=== PATIENT | male | born 1955 | race Caucasian/White ===

== ENCOUNTER 2020-06-08 12:40 | Inpatient (IN) | payer MEDICARE ==
[2020-06-08] MEDS ORDERED: AMPICILLIN-SULBACTAM 3 GM in SODIUM CHLORIDE 0.9% 100 ML IVPB STA (13:13)
[2020-06-08] MEDS ORDERED: SODIUM CHLORIDE 0.9% 500 ML 500 ML IV STA (13:13)
[2020-06-08] MEDS ORDERED: metroNIDAZOLE-NS PMX 500 MG in SALINE 1 100ML.BAG IVPB STA (13:14)
--- NOTE | 2020-06-08 13:25 | ED ---
General Adult HPI - General Chief complaint: Animal Bite Stated complaint: Cat Bite Time Seen by Provider: 06/08/20 12:58 Source: patient, RN notes reviewed, old records reviewed Mode of arrival: ambulatory Limitations: no limitations - History of Present Illness Initial comments: 64-year-old male presenting for evaluation of Bite to the left wrist and hand. This occurred on Saturday which was 5 days prior to arrival. On Saturday he was seen at an outside clinic, and started on Augmentin as well as given a tetanus update. He has been on Augmentin for the past 4 days and has noted an increase in swelling and pain in his wrist and back of his hand. He denies fever. 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 He is not currently on immunotherapy or any daily medication. - Related Data Allergies Allergy/AdvReac Type Severity Reaction Status Date / Time No Known Allergies Allergy Verified 06/08/20 12:58 Review of Systems ROS Statement: Those systems with pertinent positive or pertinent negative responses have been documented in the HPI. ROS Other: All systems not noted in ROS Statement are negative. Past Medical History Past Medical History: Cancer Additional Past Medical History / Comment(s): AML 2002, mouth Cancer History of Any Multi-Drug Resistant Organisms: None Reported Additional Past Surgical History / Comment(s): Bone marrow Transplant for AML Past Psychological History: No Psychological Hx Reported Smoking Status: Never smoker Past Alcohol Use History: None Reported Past Drug Use History: Marijuana General Exam Limitations: no limitations General appearance: alert, in no apparent distress Head exam: Present: atraumatic, normocephalic Eye exam: Present: normal appearance, PERRL ENT exam: Present: normal exam Neck exam: Present: normal inspection. Absent: tenderness, meningismus Respiratory exam: Present: normal lung sounds bilaterally. Absent: respiratory distress, wheezes Cardiovascular Exam: Present: normal rhythm, tachycardia GI/Abdominal exam: Present: soft. Absent: distended, tenderness, guarding Extremities exam: Present: other (Left hand and wrist: There are 2 linear superficial lacerations on the dorsal surface of the wrist, there is multiple puncture wounds on the dorsal surface of the hand as well as soft tissue swelling. There is no induration, there is no fluctuance or drainable abscess at this time. ) Course Vital Signs 06/08/20 12:52 Temperature 97.7 F Pulse Rate 102 H Respiratory 19 Rate Blood Pressure 118/80 O2 Sat by Pulse 97 Oximetry Medical Decision Making - Medical Decision Making 64-year-old male with Bite, 4 days on Augmentin with worsening symptoms. He has failed outpatient treatment. He will be admitted for IV antibiotics. Patient started on ceftriaxone and metronidazole. Normal white blood cell count,, normal lactic, blood cultures pending, elevated CRP at 53. Patient will be admitted with infectious disease on consult. - Lab Data Result diagrams: 06/08/20 13:18 06/08/20 13:18 Lab Results 06/08/20 06/08/20 06/08/20 Range/Units 13:18 13:18 13:18 WBC 8.0 (3.8-10.6) k/uL RBC 4.40 (4.30-5.90) m/uL Hgb 15.0 (13.0-17.5) gm/dL Hct 44.9 (39.0-53.0) % MCV 102.2 H (80.0-100.0) fL MCH 34.1 (25.0-35.0) pg MCHC 33.4 (31.0-37.0) g/dL RDW 12.2 (11.5-15.5) % Plt Count 254 (150-450) k/uL Neutrophils % 61 % Lymphocytes % 26 % Monocytes % 8 % Eosinophils % 3 % Basophils % 1 % Neutrophils # 4.9 (1.3-7.7) k/uL Lymphocytes # 2.1 (1.0-4.8) k/uL Monocytes # 0.6 (0-1.0) k/uL Eosinophils # 0.3 (0-0.7) k/uL Basophils # 0.0 (0-0.2) k/uL Sodium 139 (137-145) mmol/L Potassium 5.0 (3.5-5.1) mmol/L Chloride 106 (98-107) mmol/L Carbon Dioxide 24 (22-30) mmol/L Anion Gap 9 mmol/L BUN 20 (9-20) mg/dL Creatinine 0.94 (0.66-1.25) mg/dL Est GFR (CKD-EPI)AfAm >90 (>60 ml/min/1.73 sqM) Est GFR (CKD-EPI)NonAf 85 (>60 ml/min/1.73 sqM) Glucose 117 H (74-99) mg/dL Plasma Lactic Acid Van 1.4 (0.7-2.0) mmol/L Calcium 9.4 (8.4-10.2) mg/dL Total Bilirubin 0.9 (0.2-1.3) mg/dL AST 140 H (17-59) U/L ALT 124 H (4-49) U/L Alkaline Phosphatase 123 (38-126) U/L C-Reactive Protein 53.0 H (<10.0) mg/L Total Protein 7.2 (6.3-8.2) g/dL Albumin 4.2 (3.5-5.0) g/dL Disposition Clinical Impression: Cat bite, Failure of outpatient treatment Disposition: ADMITTED IP TO THIS [facility] Condition: Stable Instructions (If sedation given, give patient instructions): Animal Bite (ED) Is patient prescribed a controlled substance at d/c from ED?: No Referrals: Enrico Anaya DO [Primary Care Provider] - 1-2 days Decision to Admit Reason: Admit from EC Decision Date: 06/08/20 Decision Time: 13:25
[2020-06-08 13:46] LABS: Basophils % (A) 1 %; Eosinophils # (A) 0.3 k/uL (0-0.7); Eosinophils % (A) 3 %; HCT 44.9 % (39.0-53.0); Lymphocytes # (A) 2.1 k/uL (1.0-4.8); Lymphocytes % (A) 26 %; MCH 34.1 pg (25.0-35.0); MCHC 33.4 g/dL (31.0-37.0); MCV 102.2 fL (80.0-100.0); Mean Platelet Volume 7.7; Monocytes # (A) 0.6 k/uL (0-1.0); Monocytes % (A) 8 %; Neutrophils # (A) 4.9 k/uL (1.3-7.7); Neutrophils % (A) 61 %; Platelet Count 254 k/uL (150-450); RDW 12.2 % (11.5-15.5)
[2020-06-08 13:48] LABS: ALT 124 U/L (4-49); AST 140 U/L (17-59); African American GFR (CKD) >90 (>60 ml/min/1.73 sqM); Albumin 4.2 g/dL (3.5-5.0); Alkaline Phosphatase 123 U/L (38-126); Anion Gap 9 mmol/L; Blood Urea Nitrogen 20 mg/dL (9-20); Calcium 9.4 mg/dL (8.4-10.2); Carbon Dioxide 24 mmol/L (22-30); Chloride 106 mmol/L (98-107); Glucose 117 mg/dL (74-99); Non-African American GFR(CKD) 85 (>60 ml/min/1.73 sqM); Sodium 139 mmol/L (137-145); Total Bilirubin 0.9 mg/dL (0.2-1.3); Total Protein 7.2 g/dL (6.3-8.2)
--- NOTE | 2020-06-08 13:49 | XR ---
EXAMINATION TYPE: XR hand complete LT DATE OF EXAM: 06/08/2020 CLINICAL HISTORY: Cat bite of wrist. Swelling. TECHNIQUE: Frontal, lateral and oblique images of the left hand are obtained. COMPARISON: None. FINDINGS: There is no acute fracture/dislocation evident in the left hand. Decreased osseous mineral ization. There are degenerative changes of the radial carpal joints and the first carpometacarpal michael nts. The overlying soft tissue appears unremarkable. No radiopaque foreign body. IMPRESSION: No acute fracture or dislocation in the left hand.
[2020-06-08] MEDS ORDERED: NALOXONE 0.4 MG/ML 1 ML VIAL IV PRN (13:56)
[2020-06-08] MEDS ORDERED: ACETAMINOPHEN TAB 325 MG TAB PO PRN (13:56)
[2020-06-08] MEDS ORDERED: SODIUM CHLORIDE 0.9% 1,000 ML IV SCH ×2 (14:00→23:00)
[2020-06-08] MEDS: MORPHINE SULFATE 4 MG/ML SYRINGE IV PRN ×2 (15:02→19:52)
[2020-06-08] MEDS: AMPICILLIN-SULBACTAM 3 GM in SODIUM CHLORIDE 0.9% 100 ML IVPB SCH ×2 (17:31→23:54)
[2020-06-08] MEDS ORDERED: ALPRAZolam 0.25 MG TAB PO PRN (22:43)
[2020-06-08] MEDS: SODIUM CHLORIDE 0.9% 1,000 ML IV SCH (23:54)
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
[2020-06-09] MEDS: MORPHINE SULFATE 4 MG/ML SYRINGE IV PRN ×3 (02:09→17:51)
[2020-06-09] MEDS: AMPICILLIN-SULBACTAM 3 GM in SODIUM CHLORIDE 0.9% 100 ML IVPB SCH ×4 (05:59→23:57)
[2020-06-09 06:35] LABS: Basophils % (A) 1 %; Eosinophils # (A) 0.5 k/uL (0-0.7); Eosinophils % (A) 6 %; HGB 12.3 gm/dL (13.0-17.5); Lymphocytes # (A) 3.4 k/uL (1.0-4.8); Lymphocytes % (A) 39 %; MCH 33.3 pg (25.0-35.0); MCHC 31.5 g/dL (31.0-37.0); MCV 105.6 fL (80.0-100.0); Macrocytosis Slight; Mean Platelet Volume 7.4; Monocytes # (A) 0.6 k/uL (0-1.0); Monocytes % (A) 6 %; Neutrophils # (A) 3.9 k/uL (1.3-7.7); Neutrophils % (A) 46 %; Platelet Count 283 k/uL (150-450); RDW 12.8 % (11.5-15.5); WBC 8.6 k/uL (3.8-10.6)
[2020-06-09] MEDS: HEPARIN SODIUM,PORCINE 5,000 UNIT/ML 1 ML VIAL SQ SCH ×2 (07:24→21:01)
[2020-06-09] MEDS: PANTOPRAZOLE 40 MG TABLET PO SCH (07:24)
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
[2020-06-09 09:29] LABS: African American GFR (CKD) 103.5 (60.0-200.0); Anion Gap 8.9 mmol/L (4.00-12.00); BUN/Creat Ratio 18.89 Ratio (12.00-20.00); Carbon Dioxide 25.1 mmol/L (21.6-31.8); Non-African American GFR(CKD) 89.3 (60.0-200.0); Potassium 4.1 mmol/L (3.5-5.5)
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
[2020-06-09] MEDS: HYDROcodone/APAP 5-325MG 1 EACH TAB PO PRN ×2 (14:18→21:01)
--- NOTE | 2020-06-09 15:09 | US ---
EXAMINATION TYPE: US abdomen limited DATE OF EXAM: 06/09/2020 COMPARISON: NONE CLINICAL HISTORY: Increased LFT. EXAM MEASUREMENTS: Liver Length: 14.7 cm Gallbladder Wall: 0.2 cm CBD: 0.6 cm Right Kidney: 9.0 x 4.7 x 4.7 cm Pancreas: Obscured by bowel gas Liver: calcification noted right lobe, otherwise wnl Gallbladder: small amount of possible dependant debris Evidence for sonographic Carrasquillo's sign: CBD: wnl Right Kidney: superior pole obscured by overlying bowel gas, portions visualized wnl IMPRESSION: 1. Some minimal debris may be within the gallbladder. No shadowing renal stones are evident. No addit ional findings for acute cholecystitis are identified.
[2020-06-09 19:41] LABS: Hepatitis A Antibody IgM Non-Reactive (Non-Reactive); Hepatitis B Core IgM Non-Reactive (Non-Reactive); Hepatitis B Surface Antigen Non-Reactive (Non-Reactive); Hepatitis C IgG Antibody Non-Reactive (Non-Reactive)
[2020-06-09] MEDS ORDERED: NAPROXEN 250 MG TAB PO STA (20:33)
--- NOTE | 2020-06-09 20:33 | P.PN ---
Progress Note - Text Progress Note Date: 06/09/20 Presenting complaint: Cat bite History of presenting complaint: This is a pleasant 64-year-old patient with a cat bite to left hand. Domestic cat. All immunizations. Started with IV Unasyn. Today-laying in bed. Some decrease in swelling and pain of the left hand. Elevated. Able to move the fingers some. Review of systems: Was done for constitutional, cardiovascular, GI, pulmonary. relevant finding as above Active Medications Acetaminophen (Acetaminophen Tab 325 Mg Tab) 650 mg PO Q6HR PRN PRN Reason: Mild Pain or Fever > 100.5 Hydrocodone Bitart/Acetaminophen (Hydrocodone/Apap 5-325mg 1 Each Tab) 1 each PO Q6HR PRN PRN Reason: Pain Last Admin: 06/09/20 14:18 Dose: 1 each Documented by: Alprazolam (Alprazolam 0.25 Mg Tab) 0.25 mg PO TID PRN PRN Reason: Anxiety Heparin Sodium (Porcine) (Heparin Sodium,Porcine 5,000 Unit/Ml 1 Ml Vial) 5,000 unit SQ Q12HR [facility] Last Admin: 06/09/20 07:24 Dose: 5,000 unit Documented by: Ampicillin Sodium/Sulbactam (Sodium 3 gm/ Sodium Chloride) 100 mls @ 200 mls/hr IVPB Q6HR [facility] Last Admin: 06/09/20 17:53 Dose: 200 mls/hr Documented by: Sodium Chloride (Saline 0.9%) 1,000 mls @ 50 mls/hr IV .Q20H [facility] Last Admin: 06/08/20 23:54 Dose: 50 mls/hr Documented by: Morphine Sulfate (Morphine Sulfate 4 Mg/Ml Syringe) 4 mg IV Q4HR PRN PRN Reason: Severe Pain Last Admin: 06/09/20 17:51 Dose: 4 mg Documented by: Naloxone HCl (Naloxone 0.4 Mg/Ml 1 Ml Vial) 0.2 mg IV Q2M PRN PRN Reason: Opioid Reversal Pantoprazole Sodium (Pantoprazole 40 Mg Tablet) 40 mg PO AC-BRKFST [facility] Last Admin: 06/09/20 07:24 Dose: 40 mg Documented by: On examination: VITAL SIGNS: [98, 78, 20, 109/64, 96% room air] GENERAL APPEARANCE: laying in bed, comfortable HEENT: Normal external appearance of nose and ear. Oral cavity normal EYES: Pupils equal. Conjunctiva normal. NECK: JVD not raised. Mass not palpable. RESPIRATORY: Respiratory effort normal. Lungs decreased breath sounds CARDIOVASCULAR: First and second sounds normal. No edema. ABDOMEN: Soft. Liver and spleen not palpable. No tenderness. No mass palpable. PSYCHIATRY: Alert and oriented x3. Mood and affect normal. EXTREMITY: Left hand including the dorsum with some cat bite noguera tenderness present. Limited range of motion of the fingers INVESTIGATIONS, reviewed in the clinical context: white count 8.6 hemoglobin 12.3 platelets 283 potassium 4.1 creatinine 0.9 AST 140 ALT 124 assessment: -Acute cat bite causing cellulitis of the left hand-slowly improving -Hepatitis, type unknown - Plan: Acute hepatitis panels be sent off. Came back to be negative. We will do a liver ultrasound. Also check for hepatitis B surface antibody and hepatitis C IgGantibody.told the patient to use a rubber ball for regular exercise of his fingers to remove any stiffness.Will add naproxen as an anti-inflammatory.
[2020-06-09] MEDS: SODIUM CHLORIDE 0.9% 1,000 ML IV SCH (21:02)
--- NOTE | 2020-06-09 23:40 | PN ---
PROGRESS NOTE DATE OF SERVICE: 06/09/2020 REASON FOR FOLLOWUP: Left forearm cat bite cellulitis. INTERVAL HISTORY: The patient is currently afebrile. He is breathing comfortably. Overall pain and discomfort to the left forearm has slightly decreased. Did mention to have some drainage noticed this morning which has been cultured. No chest pain or cough. No abdominal pain or diarrhea. PHYSICAL EXAMINATION: Blood pressure 110/66, pulse of 77, temperature 97.9. He is 95% on room air. General description is an elderly male up in the room in no distress. RESPIRATORY SYSTEM: Unlabored breathing, clear to auscultation anteriorly. HEART: S1, S2. Regular rate and rhythm. ABDOMEN: Soft, no tenderness. Left wrist and forearm area swelling and redness minimally decreased. LABS: Wound cultures currently pending. DIAGNOSTIC IMPRESSION AND PLAN: Patient with left wrist and forearm cat bite cellulitis failing outpatient therapy. Patient currently on Unasyn to continue while waiting for the culture to finalize and continue supportive care. MMODL / IJN: [id number] /
[2020-06-10] MEDS: HYDROcodone/APAP 5-325MG 1 EACH TAB PO PRN ×2 (05:44→20:08)
[2020-06-10] MEDS: AMPICILLIN-SULBACTAM 3 GM in SODIUM CHLORIDE 0.9% 100 ML IVPB SCH ×4 (05:44→23:21)
[2020-06-10 06:35] LABS: Basophils % (A) 1 %; Eosinophils # (A) 0.4 k/uL (0-0.7); Eosinophils % (A) 7 %; HCT 38.5 % (39.0-53.0); HGB 12.1 gm/dL (13.0-17.5); Lymphocytes # (A) 2.6 k/uL (1.0-4.8); Lymphocytes % (A) 38 %; MCH 32.9 pg (25.0-35.0); MCHC 31.4 g/dL (31.0-37.0); MCV 104.7 fL (80.0-100.0); Macrocytosis Slight; Mean Platelet Volume 7.4; Monocytes # (A) 0.5 k/uL (0-1.0); Monocytes % (A) 7 %; Neutrophils % (A) 44 %; Platelet Count 303 k/uL (150-450); RBC 3.68 m/uL (4.30-5.90); RDW 12.6 % (11.5-15.5); WBC 6.7 k/uL (3.8-10.6)
[2020-06-10 09:55] LABS: African American GFR (CKD) 108.6 (60.0-200.0); Anion Gap 6.1 mmol/L (4.00-12.00); Calcium 8.6 mg/dL (8.7-10.3); Carbon Dioxide 24.9 mmol/L (21.6-31.8); Non-African American GFR(CKD) 93.7 (60.0-200.0); Potassium 4.2 mmol/L (3.5-5.5)
[2020-06-10 10:48] LABS: Hepatitis B Surface AB- Quant 20.5 mIU/mL; Hepatitis B Surface Antibody Reactive (Non-Reactive); Hepatitis C IgG Antibody Non-Reactive (Non-Reactive)
--- NOTE | 2020-06-10 10:53 | P.PN ---
Progress Note - Text Progress Note Date: 06/10/20 Orthopedic Surgery Risk Review Peña Reyes is a 64-year-old male presenting for evaluation of sudden onset left hand pain, after a cat bite. It was my pleasure to have seen and examined Peña Reyes. In our visit today we have had a chance to go over subjective complaints, physical examination findings and treatments including the natural course histo ry without intervention and various interventional options. His imaging demonstrates subcutaneous swelling around the left hand and wrist with no fractures or dislocations. On physical exam, Peña Reyes demonstrates pain with motion of the left wrist and hand with fluctuance palpable over the third and fourth MCP joints dorsally with erythema and draining wound, which is NV intact at this time. I have explained to the patient that this fracture needs stabilization. Based on the patients imaging, physical exam, and the rapid progression and disabling nature of her symptoms, at this time I recommend surgery in the form or a: Irrigation and debridement of left hand I discussed the risk and benefits of this procedure at length with Peña Reyes. Questions were invited and answered, and the patient wishes to proceed as outlined below. Currently, I am recommendin. Irrigation and debridement of skin and soft tissue of left hand dorsally secondary to cat bite 2. Review of surgical risks and benefits as well as an educational packet on the proposed surgical procedure. Risks: All surgical procedures come with inherent risks, including those related to positioning, anesthesia, intraoperative findings, and postoperative complications. It is important to understand that surgery does not come with any guarantee of a successful outcome as complications and adverse events are always possible. The patient was given a handout discussing the surgical procedure and risks associated with the intervention, both of which were discussed with the patient. These risks include but are not limited to the following: - Experiencing same, different or even worse symptoms compared to before surgery. - Requiring further surgery or other forms of treatment presently or at some time in the future . - On an extreme but fortunately relatively rare basis severe complication such as blindness, stroke, heart attack, temporary and/or permanent nerve injury, paralysis, coma, or may occur, sometimes without known explanation. - Surgical complications may include but are not limited to risk of infection, fluid accumulation in the surgical dissection site, including a seroma or hematoma, that requires additional surgery, wound drainage, bleeding, new numbness or weakness, vision changes/loss, spinal fluid leakage, non-healing and/or infected incision, headaches, difficulty or inability to swallow, hoarseness, hemopneumothorax, pneumothorax, injury to nerves, spinal cord, blood vessels, lymphatics or other vital organs (i.e., bowel injury, injury to the great vessels); heterotopic bone formation; complications related to the hardware such as screws, rods, including misplaced hardware, device failure, hardware fracture/breakage, or hardware loosening; retained surgical instrumentations or devices and the need for further surgery. - Medical risks of the planned surgery include but are not limited to generalized Infections to the whole body or local areas outside of the surgical site (sepsis), heart attack, bleeding, anaphylaxis, meningitis, seizure, epilepsy, hearing loss, burn noguera, laceration of the head or other areas of the body, bruising, hypersensitivity of the skin, bladder over distension; allergic reaction; shoulder injury related to positioning; fat, blood and air clots to other areas of the body like heart, lungs, brain; failure of internal organs such as lungs, kidneys, liver and excessive bleeding. If blood transfusions are necessary, note that transfusions may cause intolerance reactions such as anaphylaxis or other complex reactions. Despite best efforts, the results of surgery might not heal in terms of bone, soft tissues such as skin, fascia, ligaments, and joints. [facility] is an educational center that serves as a training facility for physician assistants, nurses, orthopedic residents and fellows. Residents are physicians who are completing their surgical intensive training following medical school. They assist in the operating room with direct supervision of the attending surgeons. [place] are surgeons who have completed their training and eligible for board certification. They have opted for an elective year of more specialized training in their field. They assist in the operating room under the supervision of the attending surgeons. Physician assistants are medically trained surgical providers who function in the outpatient, inpatient, and operating room setting under the direct supervision of the attending surgeon. [facility] has multiple operating rooms with single and overlapping rooms running daily. They currently function under the required guidelines as produced by the Senate Finance Committee with regards to the overlapping rooms and will continue to comply with changes to this policy as they occur. The requirements include and are complied with as follows: (1) the critical portions of the overlapping rooms will not occur at the same time, (2) the attending physician will be physically present during the critical portions of the procedure and immediately available during the entire case, and (3) a back-up attending is designated should the primary attending not be immediately available. The patient has had a chance to review all the listed information, has been given print outs detailing this information, and has had all his/her questions answered to their satisfaction. It was my pleasure to have seen and examined Peña Reyes. In our visit today we have had a chance to go over my understanding of our patient's current condition, the natural course history without intervention and various interventional options. Questions were invited and answered, and the patient wishes to proceed as outlined above. I have seen and examined the patient for 25 minutes and we have spent more than 50% of the time in repeat and detailed counseling about the patient's condition, its natural course history with out and as much as can be predicted with surgery and re-review of various surgical treatment options. In conclusion, Peña Reyes requested we proceed with the above suggested surgery and are willing to accept risks and limitations of the suggested surgery as nature of the disease process and our best attempts at treatment for the condition. Thank you again for allowing us to be part of your patient's care. Please don't hesitate to contact me if you have any further questions. Signed and authenticated by: Raymundo Head [facility] [address] [facility] [address] [address]
[2020-06-10] MEDS ORDERED: LACTATED RINGERS 1,000 ML IV ONE (11:30)
[2020-06-10] MEDS ORDERED: ONDANSETRON 4 MG/2 ML VIAL ONE (11:46)
[2020-06-10] MEDS ORDERED: DEXAMETHASONE SOD PHOSPHATE 10 MG/ML 1 ML VIAL IV ONE (11:48)
[2020-06-10] MEDS ORDERED: ONDANSETRON 4 MG/2 ML VIAL IVP ONE (11:48)
[2020-06-10] MEDS: HEPARIN SODIUM,PORCINE 5,000 UNIT/ML 1 ML VIAL SQ SCH ×2 (12:47→21:02)
[2020-06-10] MEDS: PANTOPRAZOLE 40 MG TABLET PO SCH (12:47)
[2020-06-10] MEDS: NAPROXEN 250 MG TAB PO SCH ×3 (12:48→21:02)
[2020-06-10] MEDS ORDERED: fentaNYL (PF) 50 MCG/ML 2 ML AMP ONE (12:59)
[2020-06-10] MEDS ORDERED: PROPOFOL 10 MG/ML 20 ML VIAL IV ONE (12:59)
[2020-06-10] MEDS ORDERED: KETAMINE 10 MG/ML 20 ML VIAL ONE (12:59)
[2020-06-10] MEDS ORDERED: LIDOCAINE 1% INJ 10MG/ML (20 ML MDV) ONE (12:59)
[2020-06-10] MEDS ORDERED: MIDAZOLAM 2 MG/2 ML VIAL ONE (12:59)
[2020-06-10] MEDS ORDERED: SODIUM CHLORIDE 0.9% 50 ML with ceFAZolin 2,000 MG IV ONE ×2 (13:03)
[2020-06-10] MEDS ORDERED: BUPIVACAINE (PF) 0.5% 30 ML VIAL SQ ONE (13:30)
--- NOTE | 2020-06-10 13:57 | P.OP ---
Date of Procedure: 06/10/20 Preoperative Diagnosis: L hand abscess s/p cat bite Postoperative Diagnosis: L hand abscess s/p cat bite Procedure(s) Performed: Incision and drainage of Left hand abscess with debridement of skin, soft tissue and tendon using a 15 blade knife, curette, freer elevator and 3 L of bacitracin NSS irrigation. Implants: None Anesthesia: local (with sedation) Surgeon: Raymundo Weston Estimated Blood Loss (ml): 5 IV fluids (ml): 50 Urine output (ml): 0 Pathology: none sent Condition: stable Disposition: PACU Indications for Procedure: LEFT hand swelling, drainage and purulence with subcutaneous abscess. Operative Findings: Purulent drainage from multiple puncture wounds on the dorsum of the hand and dorsalradial portion of the wrist. Not enough to culture, pre op cultures taken. Description of Procedure: The patient was seen and examined in the preoperative area. All preoperative protocols were followed. Informed consent was obtained risks and benefits of the procedure were discussed at length. Risks including bleeding infection damage to the surrounding tissue and risk of reoperation were discussed with the patient. Risk of anesthesia up to and including was a discussed with the patient. These are outlined in the risk reviewed. They were willing to accept these risks and all of the risks of surgery. The patient was given a weight- based dose of antibiotics in the form of Ancef 2 g IVPB 1. The patient was seen and evaluated by the anesthesia team who deemed them fit for surgery. The site was marked, the patient was willing to proceed with the procedure. The patient was transferred to the operative suite by the Department of anesthesia. There were then drifted off to sleep by the department of anesthesia and conscious sedation anesthesia was used. Once adequate anesthesia had been obtained the patient was carefully transferred to the operative bed. All bony prominences were padded accordingly. SCDs were placed on the nonoperative lower extremities. Arms were well padded. Left arm was exposed and placed on an arm board. Preoperative briefing was done with the operative team and everyone was ready for the procedure to start. The patients left arm was then prepped and draped in the normal sterile fashion. Timeout was then performed and all parties in agreement with the procedure to be performed. Local anesthetic was used in the form of cortical percent Marcaine without epinephrine and placed into the patient's dorsal radial wrist as well as around the incision sites over the dorsal aspect of his hand around the shaft of the second and third metacarpal as well as the fourth metacarpal. Once adequate anesthesia been attained a 15 blade was used to incise longitudinally over the fourth metacarpal shaft where a fluctuant mass was felt. This was taken down to the tendon sheath the extensor tendons. Blunt dissection was then used to break up loculations in this area using a tenotomy as well as a blunt stat. Attention is then drawn to the wound over the third metacarpal shaft this was incised transversely along the lines of its previous incision. Small amount. Material was noted here and curet was used to curet out the area. Over the dorsal radial wrist over the first extensor compartment approximately a transverse laceration was noted this was extended using a 15 blade and careful blunt dissection was done in this area to alleviate any purulent material which was very superficial. Curet was then used to curet all the areas out the hand was inspected there is no other areas of fluctuance. There was edematous tissue throughout the hand however this did not warrant dissection. 3 L of bacitracin irrigation were then run through each of the incision sites and curet was used to continue with debridement. Once the skin soft tissue and tendon shoes have been debrided the wound the hand was cleaned and 4-0 nylon stitches were placed in a simple fashion very loosely to hold the skin edges close. Iodoform packing was placed in the dorsal ulnar incision over the fourth metacarpal as this was a larger area to pack. Silastic drains were placed and the remaining of the holes to allow for continuous drainage along with loose 4-0 nylon stitches. The wound was then dressed with sterile Adaptic 4 x 4's fluffs and Kerlix and overwrapped with an Arik wrap gently and loosely. The patient was then transferred back to their hospital bed. There were awakened by department of anesthesia having tolerated the procedure very well with no complications. The patient was then transported to the postoperative care unit in stable condition.
[2020-06-10] MEDS: SODIUM CHLORIDE 0.9% 1,000 ML IV SCH (17:11)
--- NOTE | 2020-06-10 22:43 | P.PN ---
Progress Note - Text Progress Note Date: 06/10/20 Presenting complaint: Cat bite History of presenting complaint: This is a pleasant 64-year-old patient with a cat bite to left hand. Domestic cat. All immunizations. Started with IV Unasyn. Today-early today taken to the OR by orthopedics. ID was carried out. Left hand in the dressing. Pain control. No fever. Review of systems: Was done for constitutional, cardiovascular, GI, pulmonary. relevant finding as above Active Medications Acetaminophen (Acetaminophen Tab 325 Mg Tab) 650 mg PO Q6HR PRN PRN Reason: Mild Pain or Fever > 100.5 Hydrocodone Bitart/Acetaminophen (Hydrocodone/Apap 5-325mg 1 Each Tab) 1 each PO Q6HR PRN PRN Reason: Pain Last Admin: 06/10/20 20:08 Dose: 1 each Documented by: Alprazolam (Alprazolam 0.25 Mg Tab) 0.25 mg PO TID PRN PRN Reason: Anxiety Heparin Sodium (Porcine) (Heparin Sodium,Porcine 5,000 Unit/Ml 1 Ml Vial) 5,000 unit SQ Q12HR [facility] Last Admin: 06/10/20 21:02 Dose: 5,000 unit Documented by: Ampicillin Sodium/Sulbactam (Sodium 3 gm/ Sodium Chloride) 100 mls @ 200 mls/hr IVPB Q6HR [facility] Last Admin: 06/10/20 17:10 Dose: 200 mls/hr Documented by: Sodium Chloride (Saline 0.9%) 1,000 mls @ 50 mls/hr IV .Q20H [facility] Last Admin: 06/10/20 17:11 Dose: 50 mls/hr Documented by: Morphine Sulfate (Morphine Sulfate 4 Mg/Ml Syringe) 4 mg IV Q4HR PRN PRN Reason: Severe Pain Last Admin: 06/09/20 17:51 Dose: 4 mg Documented by: Naloxone HCl (Naloxone 0.4 Mg/Ml 1 Ml Vial) 0.2 mg IV Q2M PRN PRN Reason: Opioid Reversal Naproxen (Naproxen 250 Mg Tab) 250 mg PO TID [facility] Last Admin: 06/10/20 21:02 Dose: 250 mg Documented by: Pantoprazole Sodium (Pantoprazole 40 Mg Tablet) 40 mg PO AC-BRKFST [facility] Last Admin: 06/10/20 12:47 Dose: Not Given Documented by: On examination: VITAL SIGNS: 99, 82, 17, 102/60, 94% room air GENERAL APPEARANCE: l, comfortable HEENT: Normal external appearance of nose and ear. Oral cavity normal EYES: Pupils equal. Conjunctiva normal. NECK: JVD not raised. Mass not palpable. RESPIRATORY: Respiratory effort normal. Lungs decreased breath sounds CARDIOVASCULAR: First and second sounds normal. No edema. ABDOMEN: Soft. Liver and spleen not palpable. No tenderness. No mass palpable. PSYCHIATRY: Alert and oriented x3. Mood and affect normal. EXTREMITY: Left hand and a dressing and Arik wrap. INVESTIGATIONS, reviewed in the clinical context: White count 6.7 hemoglobin 12.1 potassium 4.2 creatinine 0.8 Hepatitis B surface antibody reactive hepatitis C IgG antibody nonreactive Hepatitis a IgM antibody-hepatitis B surface antigen-hepatitis B surface antibody quantitative 20.5-hepatitis B core IgM antibody-hepatitis C IgG antibody-all negative Previous testing white count 8.6 hemoglobin 12.3 platelets 283 potassium 4.1 creatinine 0.9 AST 140 ALT 124 Liver ultrasound unremarkable assessment: -Acute cat bite causing cellulitis of the left hand-slowly improving. Status post I&D today. -Hepatitis, type unknown - Plan: Continue with IV Unasyn. DC IV fluids. Pain medications to continue. Follow with Ortho [facility]ra [facility]. Discussed with the patient.
--- NOTE | 2020-06-10 23:18 | PN ---
PROGRESS NOTE DATE OF SERVICE: 06/10/2020 REASON FOR FOLLOWUP: Left wrist abscess, cat bite. INTERVAL HISTORY: The patient is currently afebrile. The patient was taken to the OR. The patient had I&D of the left wrist area abscess. The patient tolerated the procedure. Denies having any chest pain or shortness of breath or cough. No abdominal pain or diarrhea. PHYSICAL EXAMINATION: Blood pressure 132/60 with a pulse of 82, temperature 99. He is 94% on room air. General description is an elderly male lying in bed in no distress. RESPIRATORY SYSTEM: Unlabored breathing. Clear to auscultation anteriorly. HEART: S1, S2. Regular rate and rhythm. ABDOMEN: Soft. No tenderness. Left wrist is currently dressed up. No obvious drainage on the dressing. LABS: Hemoglobin is 12.1, white count 6.7, BUN of 16, creatinine 0.8. DIAGNOSTIC IMPRESSION AND PLAN: Patient with left wrist cat bite cellulitis, status post incision and drainage. Cultures currently pending. Continue with Unasyn and monitor his clinical course closely. MMODL / IJN: [id number] /
[2020-06-11] MEDS: AMPICILLIN-SULBACTAM 3 GM in SODIUM CHLORIDE 0.9% 100 ML IVPB SCH ×4 (05:37→23:54)
[2020-06-11 07:01] LABS: Basophils % (A) 0 %; Eosinophils % (A) 0 %; HCT 35.3 % (39.0-53.0); HGB 11.4 gm/dL (13.0-17.5); Lymphocytes # (A) 2.6 k/uL (1.0-4.8); Lymphocytes % (A) 33 %; MCH 33.7 pg (25.0-35.0); MCHC 32.2 g/dL (31.0-37.0); MCV 104.5 fL (80.0-100.0); Macrocytosis Slight; Mean Platelet Volume 7.1; Monocytes # (A) 0.5 k/uL (0-1.0); Monocytes % (A) 6 %; Neutrophils # (A) 4.6 k/uL (1.3-7.7); Neutrophils % (A) 58 %; Platelet Count 310 k/uL (150-450); RBC 3.38 m/uL (4.30-5.90); RDW 12.5 % (11.5-15.5); WBC 7.9 k/uL (3.8-10.6)
[2020-06-11] MEDS: HYDROcodone/APAP 5-325MG 1 EACH TAB PO PRN ×3 (07:34→22:19)
[2020-06-11] MEDS: PANTOPRAZOLE 40 MG TABLET PO SCH (07:34)
[2020-06-11 09:05] LABS: African American GFR (CKD) 108.6 (60.0-200.0); Anion Gap 6.9 mmol/L (4.00-12.00); BUN/Creat Ratio 22.5 Ratio (12.00-20.00); Calcium 8.7 mg/dL (8.7-10.3); Carbon Dioxide 25.1 mmol/L (21.6-31.8); Non-African American GFR(CKD) 93.7 (60.0-200.0); Potassium 4.3 mmol/L (3.5-5.5)
--- NOTE | 2020-06-11 09:50 | P.PN ---
Subjective Progress Note Date: 06/11/20 Principal diagnosis: Status post incision and drainage with irrigation and debridement left hand abscess Patient was evaluated today at bedside, he is resting comfortably. His pain is controlled. He has no fevers or chills, no nausea or vomiting. Postop bandage is in place. He denies any paresthesias of the left upper extremity. Currently also having no chest pain or shortness of breath. Objective - Vital Signs Vital signs: Vital Signs Temp 97.3 F L 06/11/20 07:35 Pulse 67 06/11/20 07:35 Resp 17 06/11/20 07:35 BP 104/63 06/11/20 07:35 Pulse Ox 94 L 06/11/20 07:35 Intake & Output 06/10/20 06/11/20 06/11/20 18:59 06:59 18:59 Intake Total 700 Output Total 5 Balance 695 Weight 77.111 kg Intake: IV 450 Intake, IV Titration 250 Amount Sodium Chloride 0.9% 1, 250 000 ml @ 50 mls/hr IV . Q20H [facility] Rx#:[id number] Output: Estimated Blood Loss 5 Other: Voiding Method Toilet # Voids 1 - Exam Left upper extremity: Postoperative bandage was removed. There are 3 different incisions over the dorsum of the left hand, 3 of the 4 incisions have a small Manteca drain the other one has packing. I did remove the [place] drains, no active drainage is visualized, no purulent material. There was some serosanguineous bloody drainage from the incision that has packing, that was left in place. Minimal soft tissue swelling present on the dorsum of the hand. There is no significant erythema. He is able to wiggle the fingers and make a fist with no difficulty. His sensation to light touch throughout the left upper extremity is intact. His radial pulse and ulnar pulses are 2+. His capillary refills less than 2 seconds. - Labs CBC & Chem 7: 06/11/20 06:31 06/11/20 06:31 Labs: Abnormal Lab Results - Last 24 Hours (Table) 06/10/20 06/10/20 06/11/20 Range/Units 06:05 06:05 06:31 RBC 3.38 L (4.30-5.90) m/uL Hgb 11.4 L (13.0-17.5) gm/dL Hct 35.3 L (39.0-53.0) % MCV 104.5 H (80.0-100.0) fL Chloride 110 H (96-109) mmol/L BUN/Creatinine Ratio (12.00-20.00) Ratio Calcium 8.6 L (8.7-10.3) mg/dL Hep Bs Antibody Reactive H (Non-Reactive) 06/11/20 Range/Units 06:31 RBC (4.30-5.90) m/uL Hgb (13.0-17.5) gm/dL Hct (39.0-53.0) % MCV (80.0-100.0) fL Chloride (96-109) mmol/L BUN/Creatinine Ratio 22.50 H (12.00-20.00) Ratio Calcium (8.7-10.3) mg/dL Hep Bs Antibody (Non-Reactive) Microbiology - Last 24 Hours (Table) 06/08/20 16:20 Gram Stain - Final Hand - Left Wound Culture - Final 06/08/20 13:18 Blood Culture - Preliminary Blood No Growth after 48 hours 06/09/20 11:40 Gram Stain - Preliminary Hand - Left Wound Culture - Preliminary Assessment and Plan Assessment: Status post incision and drainage with irrigation and debridement left hand abscess Plan: Local wound care, I did remove the Manteca drainage, the packing was left in place for 1 additional night. Daily dressing changes are fine at this time Pain control, continue current regimen Anticipate one additional night in the hospital for IV antibiotics, likely oral antibiotics at discharge Infectious disease recommendations Internal medicine recommendations Further recommendations to follow Time with Patient: Less than 30
[2020-06-11] MEDS: NAPROXEN 250 MG TAB PO SCH ×3 (09:52→22:18)
[2020-06-11] MEDS: HEPARIN SODIUM,PORCINE 5,000 UNIT/ML 1 ML VIAL SQ SCH ×2 (09:52→22:18)
[2020-06-11] MEDS: SODIUM CHLORIDE 0.9% 1,000 ML IV SCH (10:45)
--- NOTE | 2020-06-11 22:22 | P.PN ---
Progress Note - Text Progress Note Date: 06/11/20 Presenting complaint: Cat bite History of presenting complaint: This is a pleasant 64-year-old patient with a cat bite to left hand. Domestic cat. All immunizations. Started with IV Unasyn.taken to the OR by orthopedics. ID was carried out. [facility] place. Today-dressing taken off by orthopedics. In was drained taken off. Better movement of the fingers. No fever no chills. Review of systems: Was done for constitutional, cardiovascular, GI, pulmonary. relevant finding as above Active Medications Acetaminophen (Acetaminophen Tab 325 Mg Tab) 650 mg PO Q6HR PRN PRN Reason: Mild Pain or Fever > 100.5 Hydrocodone Bitart/Acetaminophen (Hydrocodone/Apap 5-325mg 1 Each Tab) 1 each PO Q6HR PRN PRN Reason: Pain Last Admin: 06/11/20 15:43 Dose: 1 each Documented by: Alprazolam (Alprazolam 0.25 Mg Tab) 0.25 mg PO TID PRN PRN Reason: Anxiety Heparin Sodium (Porcine) (Heparin Sodium,Porcine 5,000 Unit/Ml 1 Ml Vial) 5,000 unit SQ Q12HR [facility] Last Admin: 06/11/20 09:52 Dose: 5,000 unit Documented by: Ampicillin Sodium/Sulbactam (Sodium 3 gm/ Sodium Chloride) 100 mls @ 200 mls/hr IVPB Q6HR [facility] Last Admin: 06/11/20 17:13 Dose: 200 mls/hr Documented by: Sodium Chloride (Saline 0.9%) 1,000 mls @ 50 mls/hr IV .Q20H [facility] Last Admin: 06/11/20 10:45 Dose: Not Given Documented by: Morphine Sulfate (Morphine Sulfate 4 Mg/Ml Syringe) 4 mg IV Q4HR PRN PRN Reason: Severe Pain Last Admin: 06/09/20 17:51 Dose: 4 mg Documented by: Naloxone HCl (Naloxone 0.4 Mg/Ml 1 Ml Vial) 0.2 mg IV Q2M PRN PRN Reason: Opioid Reversal Naproxen (Naproxen 250 Mg Tab) 250 mg PO TID [facility] Last Admin: 06/11/20 15:41 Dose: 250 mg Documented by: Pantoprazole Sodium (Pantoprazole 40 Mg Tablet) 40 mg PO AC-BRKFST [facility] Last Admin: 06/11/20 07:34 Dose: 40 mg Documented by: On examination: VITAL SIGNS: 97.3, 67, 17, 104/63, 94% room air GENERAL APPEARANCE: Laying in bed, comfortable EYES: Pupils equal. Conjunctiva normal. NECK: JVD not raised. Mass not palpable. RESPIRATORY: Respiratory effort normal. Lungs decreased breath sounds CARDIOVASCULAR: First and second sounds normal. No edema. ABDOMEN: Soft. Liver and spleen not palpable. No tenderness. No mass palpable. PSYCHIATRY: Alert and oriented x3. Mood and affect normal. EXTREMITY: Left hand in a dressing. Improved movement of fingers.. INVESTIGATIONS, reviewed in the clinical context: White count 7.9 hemoglobin 11.4 potassium 4.3 creatinine 0.8 Hepatitis B surface antibody reactive hepatitis C IgG antibody nonreactive Hepatitis a IgM antibody-hepatitis B surface antigen-hepatitis B surface antibody quantitative 20.5-hepatitis B core IgM antibody-hepatitis C IgG antibody-all negative Previous testing white count 8.6 hemoglobin 12.3 platelets 283 potassium 4.1 creatinine 0.9 AST 140 ALT 124 Liver ultrasound unremarkable assessment: -Acute cat bite causing cellulitis of the left hand-slowly improving. Status post I&D -improving. Cultures coming back negative. -Hepatitis, type unknown-for outpatient workup - Plan: Continue IV Unasyn. Discussed with Dr. Sweeney from ID. Per orthopedic hopefully discharge tomorrow.
--- NOTE | 2020-06-11 23:47 | PN ---
PROGRESS NOTE DATE OF SERVICE: 06/11/2020 REASON FOR FOLLOWUP: Left wrist and forearm cat bite abscess and cellulitis. INTERVAL HISTORY: The patient is currently afebrile. The patient is breathing comfortably. The patient denies having any chest pain or shortness of breath or cough. Overall pain and discomfort to the left arm has decreased. No nausea, vomiting, abdominal pain or diarrhea. PHYSICAL EXAMINATION: Blood pressure 118/71 with a pulse of 80, temperature 98.1. He is 94% on room air. General description: The patient is an elderly male up in the bed in no distress. Respiratory system: Unlabored breathing, clear to auscultation anteriorly. Heart S1, S2. Regular rate and rhythm. ABDOMEN: Soft. Left forearm is currently dressed. No obvious drainage on the dressing. LABS: Hemoglobin is 11.4, white count 7.9, BUN of 18, creatinine 0.88. DIAGNOSTIC IMPRESSION AND PLAN: Patient with left forearm and wrist area cat bite abscess cellulitis status post drainage. Culture so far negative. The patient is currently covered with Unasyn to continue. Re-evaluate the wound tomorrow and overall improvement. Hopefully finish therapy with oral antibiotics. Continue supportive care. MMODL / IJN: [id number] /
[2020-06-12 01:05] VITALS: TEMP 97.8
[2020-06-12] MEDS: SODIUM CHLORIDE 0.9% 1,000 ML IV SCH (05:36)
[2020-06-12] MEDS: AMPICILLIN-SULBACTAM 3 GM in SODIUM CHLORIDE 0.9% 100 ML IVPB SCH ×2 (05:36→11:54)
[2020-06-12] MEDS: HYDROcodone/APAP 5-325MG 1 EACH TAB PO PRN (05:41)
--- NOTE | 2020-06-12 07:23 | P.PN ---
Subjective Progress Note Date: 06/12/20 Principal diagnosis: Status post incision and drainage with irrigation and debridement left hand abscess Patient was evaluated today at bedside, he is resting comfortably. His pain is controlled. He has no fevers or chills, no nausea or vomiting. He denies any paresthesias of the left upper extremity. Currently also having no chest pain or shortness of breath. Objective - Vital Signs Vital signs: Vital Signs Temp 97.8 F 06/12/20 00:35 Pulse 70 06/12/20 00:35 Resp 14 06/12/20 00:35 BP 104/64 06/12/20 00:35 Pulse Ox 95 06/12/20 00:35 Intake & Output 06/11/20 06/12/20 06/12/20 18:59 06:59 18:59 Intake Total 700 Balance 700 Intake: Intake, IV Titration 600 Amount Sodium Chloride 0.9% 1, 100 000 ml @ 50 mls/hr IV . Q20H [facility] Rx#:[id number] Sodium Chloride 0.9% 50 500 ml @ 0 mls/hr IV .STK-MED ONE with ceFAZolin 2,000 mg Rx#:[id number] Oral 100 Other: Voiding Method Toilet # Voids 1 1 - Exam Left upper extremity: Postoperative bandage was removed. Minimal soft tissue swelling present on the dorsum of the hand. There is no significant erythema. He is able to wiggle the fingers and make a fist with no difficulty. His sensation to light touch throughout the left upper extremity is intact. His radial pulse and ulnar pulses are 2+. His capillary refills less than 2 seconds. - Labs CBC & Chem 7: 06/11/20 06:31 06/11/20 06:31 Labs: Abnormal Lab Results - Last 24 Hours (Table) 06/11/20 Range/Units 06:31 BUN/Creatinine Ratio 22.50 H (12.00-20.00) Ratio Microbiology - Last 24 Hours (Table) 06/08/20 13:18 Blood Culture - Preliminary Blood No Growth after 72 hours 06/09/20 11:40 Gram Stain - Final Hand - Left Wound Culture - Final Assessment and Plan Assessment: Status post incision and drainage with irrigation and debridement left hand abscess Plan: Local wound care, iodoform gauze is removed today at bedside. New dressing was applied. Pain control, continue current regimen Infectious disease recommendations Internal medicine recommendations An orthopedic standpoint patient is stable for discharge to home today. [facility]. Time with Patient: Less than 30
[2020-06-12 07:54] VITALS: BP 106/66; PULSE 59; RESP 17
[2020-06-12] MEDS: NAPROXEN 250 MG TAB PO SCH (08:06)
[2020-06-12] MEDS: HEPARIN SODIUM,PORCINE 5,000 UNIT/ML 1 ML VIAL SQ SCH (08:06)
[2020-06-12] MEDS: PANTOPRAZOLE 40 MG TABLET PO SCH (08:07)
--- NOTE | 2020-06-12 14:03 | PN ---
PROGRESS NOTE DATE OF SERVICE: 06/12/2020. REASON FOR FOLLOWUP: Left wrist and hand cat bite cellulitis. INTERVAL HISTORY: Patient remains to be febrile. The patient denies having any chest pain. No shortness of breath or cough. No nausea. No abdominal pain. Overall, left wrist and hand dorsum pain and swelling has much improved. PHYSICAL EXAMINATION: Blood pressure is 106/66, pulse of 59. Temperature is 97.8. He is 98% on room air. General description: The patient is an elderly male up in the bed in no distress. Respiratory system: Unlabored breathing, clear to auscultation anteriorly. Heart S1, S2. Regular rate and rhythm. Abdomen soft, no tenderness. The left hand and wrist area swelling and redness has much improved. No drainage. LABS: White count normal. Cultures showing Gram-negative bacilli coli. DIAGNOSTIC IMPRESSION AND PLAN: Patient with left hand and wrist cat bite cellulitis status post I and D. cultures with Gram-negative bacilli, possibly . Overall improvement on Unasyn to finish therapy with oral Augmentin and close outpatient followup. Prescription sent to the pharmacy. MMODL / IJN: [id number] /
--- NOTE | 2020-06-12 19:59 | P.DS ---
Providers Date of admission: 06/08/20 13:56 Expected date of discharge: 06/12/20 Attending physician: Meet Mora Consults: 06/08/20 13:57 Consult Physician Routine Consulting Provider: Jahaira Shah Consult Reason/Comments: Cat bite failed augmentin Do you want consulting provider notified?: Yes 06/09/20 10:52 Consult Physician Routine Consulting Provider: Ascencion Chua Consult Reason/Comments: cat bite Do you want consulting provider notified?: Yes Primary care physician: [facility] Course: Presenting complaint: Cat bite History of presenting complaint: This is a pleasant 64-year-old patient with a cat bite to left hand. Domestic cat. All immunizations. Started with IV Unasyn.taken to the OR by orthopedics. ID was carried out. [facility]. Discontinued. Also has elevated LFTs. Liver panel ordered as below. Ultrasound negative. We'll have the patient follow with GI. Today-doing much better. Much improved range of motion of the fingers. Eating well. Culture grew some rare gram-negative bacilli. Cleared by orthopedics and ID for discharge. Clinically doing much better. DC on Augmentin. Consultation: Dr. Leilani Galicia from orthopedics Dr. Shah from ID On examination: VITAL SIGNS: 97.8, 59, 17, 106/66, 98% room air GENERAL APPEARANCE: Sitting up, comfortable EYES: Pupils equal. Conjunctiva normal. NECK: JVD not raised. Mass not palpable. RESPIRATORY: Respiratory effort normal. Lungs decreased breath sounds CARDIOVASCULAR: First and second sounds normal. No edema. ABDOMEN: Soft. Liver and spleen not palpable. No tenderness. No mass palpable. PSYCHIATRY: Alert and oriented x3. Mood and affect normal. EXTREMITY: Left hand in a dressing. Much Improved movement of fingers.. INVESTIGATIONS, reviewed in the clinical context: Left hand culture growing gram-negative bacilli and rare White count 7.9 hemoglobin 11.4 potassium 4.3 creatinine 0.8 Hepatitis B surface antibody reactive hepatitis C IgG antibody nonreactive Hepatitis a IgM antibody-hepatitis B surface antigen-hepatitis B surface antibody quantitative 20.5-hepatitis B core IgM antibody-hepatitis C IgG antibody-all negative Previous testing white count 8.6 hemoglobin 12.3 platelets 283 potassium 4.1 creatinine 0.9 AST 140 ALT 124 Liver ultrasound unremarkable assessment: -Acute cat bite causing cellulitis of the left hand-slowly improving. Status post I&D -improving. Cultures coming back negative. -Hepatitis, type unknown-for outpatient workup - Disposition: Home Patient Condition at Discharge: Stable Plan - Discharge Summary Discharge Rx Participant: No New Discharge Prescriptions: New Hydrocodone/Acetaminophen [[place] 5-325] 1 each PO Q6HR PRN #12 tab PRN Reason: Pain Naproxen [Naprosyn] 250 mg PO TID #15 tab Amoxicillin/Potassium Clav [Augmentin 875-125 Tablet] 1 tab PO Q12HR 7 Days #14 tab Discontinued Amoxic-Pot Clav 875-125Mg [Augmentin 875-125] 1 tab PO BID Discharge Medication List Amoxicillin/Potassium Clav [Augmentin 875-125 Tablet] 1 tab PO Q12HR 7 Days #14 tab 06/12/20 [Rx] Hydrocodone/Acetaminophen [[place] 5-325] 1 each PO Q6HR PRN #12 tab 06/12/20 [Rx] Naproxen [Naprosyn] 250 mg PO TID #15 tab 06/12/20 [Rx] Follow up Appointment(s)/Referral(s): Enrico Anaya DO [Primary Care Provider] - 1-2 days Raymundo Weston DO [Doctor of Osteopathic Medicine] - 2 Weeks Ronak Thomas MD [STAFF PHYSICIAN] - 10 Days (Hepatitis) Patient Instructions/Handouts: Animal Bite (ED) Activity/Diet/Wound Care/Special Instructions: Orthopedic discharge instructions: 1. Keep incisions covered and dry while showering 2. Local wound care, use bandages daily 3. Avoid excessive is a left hand 4. Plan for [facility] [address] Weston for recheck. antibiotic per dr shah Discharge Disposition: HOME SELF-CARE
--- NOTE | 2020-06-14 08:24 | CDI ---
Documentation Clarification Form Date: 06/14/2020 07:15:00 AM From: Marily Ross Phone: If you have a question about this query, please contact Sarah Keller Data Officer at [phone] between 8am and 5pm. Admit Date: 06/08/2020 01:56:00 PM Patient Name: Peña Reyes Visit Number: [id number] Discharge Date: 06/12/2020 02:52:00 PM ATTENTION: The Clinical Documentation Specialists (CDI) and [facility] Coding Staff appreciate your assistance in clarifying documentation. Please respond to the clarification below the line at the bottom and electronically sign. The CDI & [facility] Coding staff will review the response and follow-up if needed. Please note: Queries are made part of the Legal Health Record. If you have any questions, please contact the author of this message via ITS. Dr. Raymundo Weston Per your operative report, I and D of left hand abscess with debridement of skin, soft tissue and tendon using a 15 blade knife, curette, freer elevator and 3L of bacitracin. NSS irrigation. Please clarify if the debridement performed was excisional debridement down to tendon or non-excisional down to tendon. History/Risk Factors: cat bite, abscess and cellulitis Lt hand Clinical Indicators: abscess Treatment: I and D, debridement and irrigation Five elements required for accurate and compliant documentation of a debridement: 1. Technique used (e.g., excisional, excised, cutting, etc.) 2. Instrument(s) used (e.g., scalpel, curette, etc.) 3. Nature of the tissue removed (e.g., necrotic, devitalized tissues, non- viable tissue, etc.) 4. Appearance and size of the wound (e.g., down to fresh bleeding tissue, 7cm x 10cm, etc.) 5. Depth of the debridement* (e.g., skin, subcutaneous tissue, fascia, muscle, bone, etc.) In order to capture the severity of condition and code the appropriate procedure; could you please document the following: Excisional debridement (the removal of necrotic, devitalized tissue or slough by means of cutting away of tissue) Non-excisional debridement (the removal of necrotic, devitalized tissue or slough by means of flushing, brushing, or washing. (Irrigation) Other; please specify Unable to determine Excisional debridement of the L hand with removed of necrotic skin and subcutaneous tissue at all the aformentioned cat bite sites using a blade, curette and tenotomy scissors. AGATHAD
--- NOTE | 2020-06-17 05:32 | CDI ---
Documentation Clarification Form Date: 06/17/2020 04:22:00 AM From: Marily Ross Phone: To: Marily Ross If you have a question about this query, please contact Sarah Keller Medical Technical Writer at [phone] between 8am and 5pm. Admit Date: 06/08/2020 01:56:00 PM Patient Name: Peña Reyes Visit Number: [id number] Discharge Date: 06/12/2020 02:52:00 PM ATTENTION: The Clinical Documentation Specialists (CDI) and [facility] Coding Staff appreciate your assistance in clarifying documentation. Please respond to the clarification below the line at the bottom and electronically sign. The CDI & [facility] Coding staff will review the response and follow-up if needed. Please note: Queries are made part of the Legal Health Record. If you have any questions, please contact the author of this message via ITS. Dr. Raymundo Weston Conflicting documentation has been found in the medical record: Op Report says I and D left hand abscess with debridement of skin, soft tissue and tendon extensor tendon using a 15 blade knife, curette, freer elevator and 3 L of bacitracin NSS irrigation. The query response mentions only debridement of skin and sub q tissue only. Please clarify if debridement was only skin and subcutaneous tissue or was it down to the tendon. History/Risk Factors: cat but Clinical Indicators: cellulitis and abscess Treatment: Excisional Debridement In your opinion, what is the most clinically appropriate diagnosis for this patient? Excisional debridement of skin soft tissue and tendon Excisional debridement of skin and subcutaneous tissue only Other explanation of clinical findings Unable to determine (no explanation for clinical findings) I and D left hand abscess with debridement of skin, soft tissue and tendon extensor tendon using a 15 blade knife, curette, freer elevator and 3 L of bacitracin NSS irrigation. [facility]OSPITALJono
== END 2020-06-12 14:52 | disposition home or self-care (01) | DRG 982 ==
LOC: EC 12:40 → 4SSUR 13:56
PROVIDERS: ADMIT Hospitalist; ATTEND Hospitalist
PROC: 0J9K00Z Drainage of Left Hand Subcutaneous Tissue and Fascia with Drainage Device, Open Approach (ICD-10-PCS; principal; 2020-06-10 12:30)
PROC: 0LB80ZZ Excision of Left Hand Tendon, Open Approach (ICD-10-PCS; principal; 2020-06-10 12:30)
DX: L03.114 Cellulitis of left upper limb (principal); L02.512 Cutaneous abscess of left hand; Z94.81 Bone marrow transplant status; S61.452A Open bite of left hand, initial encounter; S61.539A Puncture wound without foreign body of unspecified wrist, initial encounter; W55.01XA Bitten by cat, initial encounter; S61.552A Open bite of left wrist, initial encounter; K75.9 Inflammatory liver disease, unspecified; Z80.9 Family history of malignant neoplasm, unspecified; Z85.6 Personal history of leukemia; Z85.819 Personal history of malignant neoplasm of unspecified site of lip, oral cavity, and pharynx; R73.9 Hyperglycemia, unspecified; Z87.81 Personal history of (healed) traumatic fracture; Z88.8 Allergy status to other drugs, medicaments and biological substances
CPT/HCPCS: 36415; 76705; 80048; 80053; 80074; 83605; 85025; 86140; 86706; 86803; 87040; 87070; 87075; 87205; 96365; 96367; 99285

== ENCOUNTER → 2021-12-21 | Outpatient (CLI) | payer MEDICARE ==
--- NOTE | 2021-12-21 07:57 | US ---
EXAMINATION TYPE: US extremity nonvasculr ltd LT DATE OF EXAM: 12/21/2021 COMPARISON: NONE CLINICAL HISTORY: M25.562 Pain in left knee; r/o stubbs's cyst. [place] shaped complex fluid collection measuring 3.2 x 0.9 x 1.0cm, there appears to be some periph eral vascularity. IMPRESSION: Above findings are consistent with small to moderate size popliteal cyst.
== END | disposition home or self-care (01) ==
LOC: RADUSWWP 06:56
PROVIDERS: ATTEND Family Medicine
DX: M25.562 Pain in left knee (principal)

== ENCOUNTER → 2022-12-04 | Outpatient (CLI) | payer MEDICARE ==
--- NOTE | 2022-12-04 22:16 | US ---
EXAMINATION TYPE: US thyroid st tissue head/neck DATE OF EXAM: 12/04/2022 COMPARISON: NONE CLINICAL HISTORY: R22.0 LOCALIZED SWELLING, MASS AND LUMP, HEAD. Pt state palpable lump right upper l ip/ pt denies pain Technique: Grayscale and color Doppler imaging the area of palpable abnormality in the patient's uppe r left. FINDINGS: Lobulated, complex area right upper lip in area of pt's palpable lump= 1.5 x 1.0 x 2.2 cm/ Peripheral vascularity visualized IMPRESSION: Complex fluid collection in the patient's area of palpable lump etiology is uncertain could represent sequela prior trauma versus organizing fluid collection such as abscess in the appropriate clinical setting. Consider CT with IV contrast for further evaluation versus tissue sampling.
== END | disposition home or self-care (01) ==
LOC: RADUSWWP 14:53
PROVIDERS: ATTEND Family Medicine
DX: R22.0 Localized swelling, mass and lump, head (principal)
CPT/HCPCS: 76536